=== PATIENT | female | born 1980 | race Caucasian/White ===

== ENCOUNTER 2025-09-06 16:29 | Outpatient (REF) | payer BC, SELFPAY ==
[2025-09-06 17:35] LABS: Anion Gap 7.4 mmol/L (3-11); BUN 7 mg/dL (7-18); CO2 30.6 mmol/L (21.0-32.0); Calcium 9.1 mg/dL (8.5-10.1); Chloride 100 mmol/L (98-107); Cholesterol 225 mg/dL (<200); Glucose 94 mg/dL (74-106); HDL Cholesterol 67 mg/dL (>or=50); Potassium 3.7 mmol/L (3.5-5.1); Sodium 138 mmol/L (136-145); Vitamin D 25 Total 52 ng/mL (30-100)
[2025-09-07 18:15] LABS: HIV-1/2 Ag & Ab Screen Negative (Negative); Hepatitis C Ab w Rflx HCV PCR Negative (Negative)
[2025-09-08 16:40] LABS: Bacterial Vaginosis (BV) Positive (Negative); Candida glabrata Negative (Negative); Candida species group Negative (Negative); Chlamydia Result Negative (Negative); GC Result Negative (Negative)
[2025-09-10 09:27] LABS: Syphilis Serology (RPR) Negative (Negative)
== END 2025-09-06 16:30 | disposition home or self-care (01) ==
LOC: NCHCN 16:29
PROVIDERS: PCP Family Medicine; Visit Provider Family Medicine
DX: Z00.00 Encounter for general adult medical examination without abnormal findings (principal); N89.8 Other specified noninflammatory disorders of vagina
CPT/HCPCS: 80048; 80061; 81513; 82306; 86803; 87389; 87481; 87491; 87591; 87661; 86592